=== PATIENT | female | born 1980 | race Caucasian/White ===

== ENCOUNTER → 2017-09-20 | Outpatient (CLI) | payer BC ==
[~2017-09-20] MED LIST: BENZ-36 PO; BIRTH CONTROL PO; CODE118S2 PO; CYCL10TA9 PO; DIPH25TA27 PO; ECHINACEA PO; EPIN0.3P3 IJ; HYDR-3584 PO; HYDR-757 PO; IPRA3AMP IH; LORA10TA7 PO; METF-478 PO; METF500T8 PO; MONT10TA24 PO; MULT1TAB69 PO; NAPR-915 PO; NORG1TAB30 PO; OXYC-272 PO; PRD10T PO; PRED10TA22 PO; SERT100T8 PO; SPIR50TA2 PO; SPRN25T PO; SRTR100T PO; VITA400C21 PO; VITA80006 PO
--- NOTE | 2017-09-20 15:02 | Diagnostic Imaging Report ---
PROCEDURE: US Gallbladder. TECHNIQUE: Multiple real-time grayscale images were obtained over the right upper quadrant in various projections. INDICATION: Abdominal pain. COMPARISON: None. FINDINGS: The liver appears unremarkable. The common bile duct is not well demonstrated however no gross biliary dilatation is seen. There is a 2.1 cm stone within the gallbladder. There is no gallbladder wall thickening or pericholecystic fluid. The pancreas appears unremarkable as visualized. The right kidney measures 11 cm in length. There is a 10 mm cyst in the mid right kidney. There is no obstructive change. There is no ascites. IMPRESSION: 1. Cholelithiasis without evidence of cholecystitis. 2. 1 cm right renal cyst. 3. No additional abnormality is seen. Dictated by: Dictated on workstation # [id number]
== END ==
LOC: RAD 14:04
PROVIDERS: ATTEND Internal Medicine
DX: K80.20 Calculus of gallbladder without cholecystitis without obstruction (principal); N28.1 Cyst of kidney, acquired
CPT/HCPCS: 76705

== ENCOUNTER 2017-09-26 05:39 | Outpatient (CLI) | payer BC ==
[~2017-09-26] VITALS: Ht 154.9 cm; Wt 65.8 kg
[2017-09-26] MEDS ORDERED: METF500T8 PO (10:40)
[2017-09-26] MEDS ORDERED: NAPR-1033 PO (10:40)
[2017-09-26] MEDS ORDERED: CEFP250T2 PO (10:40)
[2017-09-28] MEDS ORDERED: HYDR-34 PO (16:00)
== END 2017-09-26 10:49 ==
LOC: PREOP 05:39
PROVIDERS: ATTEND Surgery
DX: Z01.818 Encounter for other preprocedural examination (principal); K80.20 Calculus of gallbladder without cholecystitis without obstruction

== ENCOUNTER 2017-09-28 11:41 | Day surgery (SDC) | payer BC ==
[~2017-09-28] VITALS: Ht 154.9 cm; Wt 65.8 kg
[~2017-09-28 11:41] MED LIST changes: +CEFP250T2 PO; +NAPR-1033 PO
[2017-09-28 11:45] VITALS: BP 123/73
[2017-09-28] MEDS ORDERED: BUP/EPI 0.5% 1:200,000 (SENSORCAINE) 30 ML VIAL ONE (11:58)
[2017-09-28] MEDS ORDERED: ceFAZolin INJECTION 1,000 MG in NS (IVPB) 100 ML IV ONE (12:00)
[2017-09-28] MEDS ORDERED: FAMOTIDINE 20MG/2ML IV (PEPCID) IV ONE (12:15)
[2017-09-28] MEDS: LACTATED RINGERS 1,000 ML IV PRN ×2 (12:15→15:10)
--- NOTE | 2017-09-28 12:27 | Progress Note-Pre Operative ---
Pre-Operative Progress Note H&P Reviewed The H&P was reviewed, patient examined and no changes noted. Date Seen by Provider: Sep 28, 2017 Time Seen by Provider: 12:20 Date H&P Reviewed: Sep 28, 2017 Time H&P Reviewed: 12:25 Pre-Operative Diagnosis: Chronic calculous cholecystitis KVNG MORAN APRN Sep 28, 2017 12:27 pm
[2017-09-28] MEDS ORDERED: proPOfol 200 MG/20 ML (DIPRIVAN) VIAL IV ONE (13:23)
[2017-09-28] MEDS ORDERED: LIDOCAINE PF 2% 5 ML (XYLOCAINE) VIAL ONE (13:23)
[2017-09-28] MEDS ORDERED: ROCURONIUM 10 MG/ML 5 ML SYRINGE IV ONE (13:23)
[2017-09-28] MEDS ORDERED: MIDAZOLAM 2 MG/2 ML (VERSED) VIAL ONE (13:23)
[2017-09-28] MEDS ORDERED: ONDANSETRON 4 MG/2 ML (SDV) Z0FRAN ONE (13:23)
[2017-09-28] MEDS ORDERED: fentaNYL INJECTION 100 MCG/2 ML AMP ONE (13:23)
[2017-09-28] MEDS ORDERED: DEXAMETHASONE 10 MG/ML (DECADRON) 1 ML VIAL ONE (13:23)
[2017-09-28] MEDS ORDERED: SEVOFLURANE (ULTANE) 15 ML INHAL SOLN ONE ×5 (13:28→15:53)
[2017-09-28] MEDS ORDERED: ONDANSETRON 4 MG/2 ML (SDV) Z0FRAN IVP PRN ×2 (15:30→16:00)
[2017-09-28] MEDS ORDERED: SUGAMMADEX 100 MG/ML 5 ML (BRIDION) IV ONE (15:36)
--- NOTE | 2017-09-28 15:51 | Progress Note-Post Operative ---
Post-Operative Progess Note Surgeon (s)/Ladle Car Operator (s) Surgeon TRAVIS BUCHANAN MD Ladle Car Operator: thang montesinos DUB ROOM ENGINEER Pre-Operative Diagnosis Chronic calculous cholecystitis Post-Operative Diagnosis same Procedure & Operative Findings Date of Procedure 09/28/17 Procedure Performed/Findings laparoscopic cholecystectomy. Anesthesia Type GET Estimated Blood Loss Estimated blood loss (mL): minimal Specimens/Packing Specimens Removed gallbladder TRAVIS BUCHANAN MD Sep 28, 2017 3:51 pm
[2017-09-28] MEDS ORDERED: NEOSTIGMINE 1 MG/ML 5 ML SYRINGE ONE (15:53)
[2017-09-28] MEDS ORDERED: GLYCOPYRROLATE 0.2 MG/ML (ROBINUL) 2 ML VIAL ONE (15:53)
[2017-09-28] MEDS ORDERED: morphine INJ 10 MG/ML 1ML (SYR OR VIAL) IVP PRN (16:00)
[2017-09-28] MEDS ORDERED: HYDROcodone/APAP 5 MG/325 MG (LORTAB) TAB PO ONE (16:00)
[2017-09-28] MEDS ORDERED: ACETAMINOPHEN 325 MG TABLET/CAPLET (TYLENOL) PO PRN (16:00)
[2017-09-28] MEDS ORDERED: HYDR-34 PO (16:00)
--- NOTE | 2017-09-28 16:01 | Discharge Inst-Surgical ---
D/C Lap Instructions-CHANEL New, Converted, or Re-Newed RX: RX on Chart Follow Up Appt in 2 weeks Activity as tolerated No driving for 24 hours No driving while on pain medications Incentive Spirometry use every 2 hours while awake Regular Diet Symptoms to Report: Fever over 101 degree F, Nausea/Vomiting Infection Signs and Symptoms to report: Increased redness, Foul odor of wound, Increased drainage Bathing instructions: May shower Operative Area Clean/Dry; Keep incision clean/dry If any problems/questions: Contact your physician or go to Emergency Room TRAVIS BUCHANAN MD Sep 28, 2017 4:01 pm
[2017-09-28] MEDS: morphine INJ 10 MG/ML 1ML (SYR OR VIAL) IVP PRN ×2 (16:24→16:32)
[2017-09-28 17:05] VITALS: BP 110/69
[2017-09-28 17:35] VITALS: BP 106/64
[2017-09-28 18:05] VITALS: BP 104/75
--- NOTE | 2017-09-28 18:47 | Anesthesia-General Post-Op ---
General Patient Condition Mental Status/LOC: Same as Preop Cardiovascular: Satisfactory Nausea/Vomiting: Absent Respiratory: Satisfactory Pain: Controlled Complications: Absent Post Op Complications Complications None Follow Up Care/Instructions Patient Instructions None needed. Anesthesia/Patient Condition Patient Condition Patient is doing well, no complaints, stable vital signs, no apparent adverse anesthesia problems. No complications reported per nursing. ZURI HERNADEZ CRNA Sep 28, 2017 18:47
--- NOTE | 2017-09-28 20:36 | OPERATIVE REPORT ---
DATE OF SERVICE: 09/28/2017 ATTENDING PRIMARY CARE PHYSICIAN: Alli Ardon DO. PREOPERATIVE DIAGNOSIS: Symptomatic chronic calculous cholecystitis. POSTOPERATIVE DIAGNOSIS: Symptomatic chronic calculous cholecystitis. PROCEDURE: Laparoscopic cholecystectomy. SURGEON: Travis Buchanan MD. ANESTHESIA: General endotracheal. ESTIMATED BLOOD LOSS: Minimal. FINDINGS: Chronic gallbladder wall inflammation as well as large solitary stone. DISPOSITION: The patient tolerated the procedure well. INDICATIONS FOR PROCEDURE: The patient is a 37-year-old female who has had several episodes of pain in the right upper abdominal quadrant with radiation towards the back. However, several weeks ago, she had had a severe event that lasted much longer and was associated with fever. She was seen by her physician and the ultrasound was performed, which did show gallstones. DESCRIPTION OF PROCEDURE: The patient was brought to the operating room, laid supine on the table. After adequate IV pain and sedative medications and general endotracheal intubation, the abdomen was prepped and draped in standard surgical fashion. A 0.5% Marcaine with epinephrine was then used to anesthetize the overlying skin in the left upper abdominal quadrant and a transverse skin incision made using 15 blade. An 0 silk suture was applied to the medial aspect of the incision for retraction and a Veress needle inserted with a low opening pressure of 0 mmHg and the abdomen was insufflated to 15 mmHg pressure. The Veress needle removed and a 5 mm Xcel trocar placed followed by a 5 mm 45 degree angle laparoscope visualizing the peritoneal cavity. A four-quadrant abdominal exploration was performed. There was a distended gallbladder with mild gallbladder wall inflammation. What was visualized of the liver, small bowel, omentum and stomach appeared normal. Under direct visualization, we then proceed to place a supraumbilical 10 mm port after the skin and peritoneal lining were anesthetized using 0.5% Marcaine with epinephrine and a transverse skin incision was made using a 15 blade. In a similar manner, a right upper abdominal quadrant 5 mm port was placed. The patient was then placed in reverse Trendelenburg position as well as plane right side up, left side down. The fundus of the gallbladder was then retracted anteriorly and superiorly. The hepatoduodenal ligament was then opened using electrocautery on the hook instrument as well as blunt dissection. The entire critical view of safety was identified including the cystic duct and artery as the only two structures going into the gallbladder, triangle of Calot as well as the cystic plate behind the proximal gallbladder. A timeout was then taken and the cystic duct and artery were then clipped proximally and distally and cut with EndoShears. The gallbladder was then dissected off the liver bed using electrocautery and hook instrument with visualization of good hemostasis as well as no leaking ducts of Luschka. The gallbladder was removed through the 10 mm port site using an EndoCatch bag. The 10 mm port site fascia and peritoneum were then closed under direct visualization using a Earl-Aurora device and 0 Vicryl suture. The abdomen was desufflated. The remaining ports removed. All skin incisions were closed using 4-0 Monocryl running subcuticular sutures. Wounds were then cleaned and covered with Dermabond. The patient tolerated the procedure well. We will start IV and oral pain medications as well as a clear liquid diet. Once she is tolerating clears, has good pain control with oral pain medications, ambulating well, we will discharge her home. Job ID: [id number] DocumentID: [id number] Dictated Date: 09/28/2017 16:05:29 Petroleum Engineering Professor Date: 09/28/2017 20:36:24 Dictated By: TRAVIS BUCHANAN MD
== END 2017-09-28 18:45 | disposition home or self-care (01) ==
LOC: SDC 11:41
PROVIDERS: ATTEND Surgery
DX: K80.10 Calculus of gallbladder with chronic cholecystitis without obstruction (principal); E28.2 Polycystic ovarian syndrome; F32.9 Major depressive disorder, single episode, unspecified; R51 Headache; Z79.84 Long term (current) use of oral hypoglycemic drugs; Z79.899 Other long term (current) drug therapy; Z87.891 Personal history of nicotine dependence
CPT/HCPCS: 84703; 87081

== ENCOUNTER 2018-12-25 15:05 | Emergency (ER) | payer BC, OTHER ==
[~2018-12-25] VITALS: Ht 154.9 cm; Wt 62.6 kg
[~2018-12-25 15:05] MED LIST changes: -CODE118S2 PO; +CODE118S4 PO; +HYDR-34 PO; +HYDR-4226 PO; -HYDR-757 PO; -IPRA3AMP IH; +IPRA3AMP31 IH; -SPIR50TA2 PO; +SPIR50TA4 PO
--- OUTSIDE RECORDS SUMMARY | 2018-12-25 15:10 | XMS REPORT | Clinical Summary ---
Author Author [facility] Organization [facility] Address Unknown Phone Unavailable Care Team Providers Care Frame And Scrap Crusher Name Role Phone Alli Ardon MD PCP Source Comments Some departments are not documenting in the electronic medical record. If you d o not see the information that you expected, contact Release of Information in [facility] [place] Information Management department at [phone] for further assistan ce in locating additional records.[facility] Allergies Comments Active Allergy Reactions Severity Noted Date Possible elevated LFTs Azithromycin ANAPHYLAXIS, High 06/08/2016 URTICARIA, ANGIOEDEMA Medications End Date Status Medication Sig Dispensed Refills Start Date Active metFORMIN-XR(+) Take 500 mg 0 (GLUCOPHAGE XR) 500 mg by mouth extended release tablet daily with dinner. Active spironolactone Take 50 mg by 0 (ALDACTONE) 50 mg tablet mouth daily. Take with food. Active norgestimate/ethinyl Take 1 Tab by 0 estradiol(+) (MONONESSA mouth daily. (28)) tablet Active sertraline (ZOLOFT) 100 Take 100 mg 0 mg tablet by mouth daily. Active multivit with min-folic Chew 2 Gummy 0 acid (WOMEN'S by mouth MULTIVITAMIN GUMMIES) 200 daily. mcg chewable Active diphenhydrAMINE Take 1 Cap by 30 Cap 0 (BENADRYL) 25 mg capsule mouth every 6 6 hours as needed (pruritis, hives). Active hydrOXYzine (ATARAX) 25 Take 1-2 Tabs 60 Tab 0 mg tablet by mouth at 6 bedtime daily. Active cetirizine (ZYRTEC) 10 mg Take 1 Tab by 30 Tab 0 tablet mouth daily. 6 Active prednisone (DELTASONE) 20 Take 40mg (2 10 Tab 0 mg tablet tabs) by 6 mouth daily for 3 days, then take 20mg (1 tab) for 3 days, then take 10mg (1 tab) daily for 1 day. Active famotidine (PEPCID) 20 mg Take 1 Tab by 60 Tab 0 tablet mouth twice 6 daily. Active EPINEPHrine(+) (EPIPEN Inject 0.3 mg 2 Each 11 2-PHILIPP) 1 mg/mL injection (1 Pen) into 6 pen (2-Pack) thigh if needed for anaphylactic reaction. May repeat in 5-15 minutes if needed. Active Problems Problem Noted Date Acute urticaria 07/21/2016 Overview: With and without angioedema (involved lip, tongue, throat) Thought to be sec to infection and or azithromycin use Resolved Azithromycin listed as allergy, will avoid Clarithromycin as well Has Epi-pen available, if no further episodes in a year, can discontinue carrying it around If recurrent episodes, will start Zyrtec 10mg daily, increase to BID dosing if needed and call us for further recs Weight gain 07/21/2016 Overview: Likely sec to recent steroid use Normal thyroid work up per patient Could follow up with PCP if remains a concern Recurrent infections 07/21/2016 Overview: Reports 5 episodes of pnuemonia in last 5 yrs, all treated as outpatient with antibiotics First episode confirmed by a CXR Recurrent sinusitis (2 per year), last episode 5 years ago, all treated with antibiotics, never had CT sinus Hx not concerning for any other infections CBC checked 06/17 wnl, CMP unremarkable except for transaminitis Will order IgG, M and A levels, total complement, pneumococcal IgG levels (no hx of pneumonia shot), T & B cell panel, HiB and Tetanus antibody levels to evaluate for PID Shortness of breath 07/21/2016 Overview: No formal diagnosis of asthma Always been associated with development of pnuemonia and would resolve with breathing treatments via nebulizer No association of shortness of breath with URI, cold air exposure or exertion Spirometry not reproducible with normal ratio and % predicted FEV1 Not sure if we could call this asthma Would recommend for PCP to start Symbicort 160/4.5 mcg 2 puffs BID at the first symptoms of shortness of breath (use it for 2 weeks) and to obtain spirometry (pt lives in [place], [place]) to further evaluate Cholelithiasis 06/10/2016 Transaminitis 06/10/2016 Overview: Likely sec to Azithromycin use in Jun, 16 as work up for viral hepatitis and auto-immune hepatitis unremarkable Reports recent labs as outpatient with borderline abnormal levels, will repeat CMP today Anaphylaxis 06/07/2016 PCOS (polycystic ovarian syndrome) 06/07/2016 Anxiety 06/07/2016 Family History Medical History Relation Name Comments Stroke Father Relation Name Status Comments Father Social History Date Tobacco Use Types Packs/Day Years Used Never Smoker Drinks/Week oz/Week Comments Alcohol Use 0 Standard drinks or equivalent 0.0 No Sex Assigned at Date Recorded Not on file Industry Job Start Date Occupation Not on file Not on file Not on file Travel End Travel History Travel Start No recent travel history available. Last Filed Vital Signs Reading Time Taken Comments Vital Sign 105/73 07/21/2016 10:49 AM CHEMISTRY INTERN Blood Pressure 93 07/21/2016 10:49 AM CHEMISTRY INTERN Pulse 36.9 C (98.4 F) 07/21/2016 10:49 AM CHEMISTRY INTERN Temperature 16 07/21/2016 10:49 AM CHEMISTRY INTERN Respiratory Rate 98% 07/21/2016 10:49 AM CHEMISTRY INTERN RA Oxygen Saturation - - Inhaled Oxygen Concentration 66.7 kg (147 lb) 07/21/2016 10:49 AM CHEMISTRY INTERN Weight 154.9 cm (5' 1") 07/21/2016 10:49 AM CHEMISTRY INTERN Height 27.78 07/21/2016 10:49 AM CHEMISTRY INTERN Body Mass Index Plan of Treatment Health Maintenance Due Date Last Done Comments PHYSICAL (COMPREHENSIVE) 1985 EXAM HIV SCREENING 1993 DTAP/TDAP VACCINES ( - 1996 Tdap) CERVICAL CANCER SCREENING 2008 BREAST CANCER SCREENING 2018 INFLUENZA VACCINE 04/02/2019 Results Not on filefrom Last 3 Months Insurance Type Payer Benefit Subscriber ID Effective Phone Address Plan / Dates Group PPO BCBS DICK [employer]BS [employer] xxxxxxxxxxxx 2016- OUT OF Present STATE Advance Directives Patient Special Procedure Technologist Explanation Type Date Recorded Advance 06/08/2016 1:24 PM Directive/DPOA Date Inactivated Comments Code Status Date Activated 06/10/2016 3:20 PM Full Code 06/07/2016 7:37 PM Provider has discussed Code Status No, more discussion w/Patient or Family? needed
--- OUTSIDE RECORDS SUMMARY | 2018-12-25 15:10 | XMS REPORT ---
Author Author Migration, Doctor Organization [facility] Address Unknown Phone Unavailable Care Team Providers Care Conveyor Console Operator Name Role Phone Migration, Doctor Unavailable Unavailable PROBLEMS Unknown Problems ALLERGIES No Information ENCOUNTERS Encounter Location Date Diagnosis [facility] [id number] [place] [phone] 25 Sep, 2015 Sore throat J02.9 ; Body aches R52 ; Submandibular lymphadenitis I88.9 and Parotitis, acute K11.21 [facility] [id number] [place] [id number] 14 Oct, 2014 [facility] [id number] [place] [phone] Oct, [facility] [id number] [place] [id number] 27 Mar, 2012 [facility] [id number] [place] [phone] 04 Mar, 2012 [facility] [id number] [place] [phone] Dec, [facility] [id number] [place] [phone] 14 Aug, 2010 [facility] [id number] [place] [phone] 14 Mar, 2010 [facility] [id number] [place] [phone] May, [facility] [id number] [place] [phone] May, [facility] [id number] [place] [phone] May, [facility] [id number] [address] Apr, [facility] [id number] [address] Aug, [facility] [id number] [address] Jun, [facility] [id number] [address] Jun, [facility] [id number] [address] Apr, [facility] [id number] [address] Apr, IMMUNIZATIONS No Known Immunizations SOCIAL HISTORY Never Assessed REASON FOR V[place] [place] VITAL SIGNS MEDICATIONS No Known Medications RESULTS No Results PROCEDURES No Known procedures INSTRUCTIONS MEDICATIONS ADMINISTERED No Known Medications MEDICAL (GENERAL) HISTORY Type Description Date Medical History PCOS (Polycystic Ovary Syndrome) Medical History endometriosis Medical History fibroids Surgical History endometrial ablation 2014
--- OUTSIDE RECORDS SUMMARY | 2018-12-25 15:10 | XMS REPORT ---
Author Author Migration, Doctor Organization [facility] Address Unknown Phone Unavailable Care Team Providers Care Pediatric Physiatrist Name Role Phone Migration, Doctor Unavailable Unavailable PROBLEMS Unknown Problems ALLERGIES No Information ENCOUNTERS Encounter Location Date Diagnosis [facility] [id number] [place] [id number] 25 Sep, 2015 Sore throat J02.9 ; Body aches R52 ; Submandibular lymphadenitis I88.9 and Parotitis, acute K11.21 [facility] [id number] [place] [phone] 14 Oct, 2014 [facility] [id number] [place] [phone] Oct, [facility] [id number] [place] [phone] 27 Mar, 2012 [facility] [id number] [place] [phone] 04 Mar, 2012 [facility] [id number] [place] [phone] Dec, [facility] [id number] [place] [phone] 14 Aug, 2010 [facility] [id number] [place] [phone] 14 Mar, 2010 [facility] [id number] [place] [phone] May, [facility] [id number] [place] [phone] May, [facility] [id number] [place] [phone] May, [facility] [id number] [address] Apr, [facility] [id number] [address] Aug, [facility] [id number] [address] Jun, [facility] [id number] [address] Jun, [facility] [id number] [address] Apr, [facility] [id number] [address] Apr, IMMUNIZATIONS No Known Immunizations SOCIAL HISTORY Never Assessed REASON FOR VISIT [place] [place]AN OF CARE VITAL SIGNS MEDICATIONS No Known Medications RESULTS No Results PROCEDURES No Known procedures INSTRUCTIONS MEDICATIONS ADMINISTERED No Known Medications MEDICAL (GENERAL) HISTORY Type Description Date Medical History PCOS (Polycystic Ovary Syndrome) Medical History endometriosis Medical History fibroids Surgical History endometrial ablation 2014
--- OUTSIDE RECORDS SUMMARY | 2018-12-25 15:10 | XMS REPORT ---
Author Author Migration, Doctor Organization [facility] Address Unknown Phone Unavailable Care Team Providers Care Nutrition Manager Name Role Phone Migration, Doctor Unavailable Unavailable PROBLEMS Unknown Problems ALLERGIES No Information ENCOUNTERS Encounter Location Date Diagnosis [facility] [id number] [place] [id number] 25 Sep, 2015 Sore throat J02.9 ; Body aches R52 ; Submandibular lymphadenitis I88.9 and Parotitis, acute K11.21 [facility] [id number] [place] [phone] 14 Oct, 2014 [facility] [id number] [place] [phone] Oct, [facility] [id number] [place] [phone] 27 Mar, 2012 [facility] [id number] [place] [phone] 04 Mar, 2012 [facility] [id number] [place] [phone] Dec, [facility] [id number] [place] [phone] 14 Aug, 2010 [facility] [id number] [place] [phone] 14 Mar, 2010 [facility] [id number] [place] [phone] May, [facility] [id number] [place] [phone] May, [facility] [id number] [place] [phone] May, [facility] [id number] [address] Apr, [facility] [id number] [address] Aug, [facility] [id number] [place] [address] Jun, [facility] [id number] [place] [address] Jun, [facility] [id number], [place] [address] Apr, [facility] [id number] [place] [address] Apr, IMMUNIZATIONS No Known Immunizations SOCIAL HISTORY Never Assessed REASON FOR VISIT [place] [place] PLAN OF CARE VITAL SIGNS MEDICATIONS Medication Instructions Dosage Frequency Start Date End Date Duration Status sertraline 100 mg 1 tablet by Oral route 1 time per dayneeds f/u appt for further refills---please advise pt Mar, Active RESULTS No Results PROCEDURES No Known procedures INSTRUCTIONS MEDICATIONS ADMINISTERED No Known Medications MEDICAL (GENERAL) HISTORY Type Description Date Medical History PCOS (Polycystic Ovary Syndrome) Medical History endometriosis Medical History fibroids Surgical History endometrial ablation 2014
--- OUTSIDE RECORDS SUMMARY | 2018-12-25 15:11 | XMS REPORT | Continuity of Care Document ---
Author Organization Unknown Address Unknown Allergies Active Description Code Type Severity Reaction Onset Reported/Identified Relationship to Patient Clinical Status Yes NKANo Known Allergies NKA Miscellaneous Allergy Mild N/A 05/03/2009 Yes azithromycin [id number] Drug Allergy Severe ANAPHYLAXIS 06/03/2016 Medications There is no data. Problems Date Dx Coded Attending Type Code Diagnosis Diagnosed By 10/09/2014 LITO MAURER, MECCA Canales Ot 285.9 10/09/2014 LITO MAURER, MECCA Canales Ot 625.8 10/09/2014 LITO MAURER, MECCA Canales Ot 626.8 10/09/2014 LITO MAURER, MECCA Canales Ot V72.63 10/09/2014 MECCA MORSE MD Ot V74.8 10/10/2014 MECCA MORSE MD Ot 617.0 UTERINE ENDOMETRIOSIS 10/10/2014 MECCA MORSE MD Ot 617.1 OVARIAN ENDOMETRIOSIS 10/10/2014 MECAC MORSE MD Ot 617.3 PELV PERIT ENDOMETRIOSIS 10/10/2014 MECCA MORSE MD Ot 626.8 MENSTRUAL DISORDER NEC 10/30/2014 LITO MAURER, MECCA Canales Ot 285.9 10/30/2014 LITO MAURER, MECCA Canales Ot 625.8 10/30/2014 MECCA MORSE MD Ot 626.8 10/30/2014 MECCA MORSE MD, Ot V72.63 10/30/2014 MECCA MORSE MD Ot V74.8 12/07/2014 MECCA MORSE MD Ot 611.72 12/07/2014 MECCA MORSE MD Ot 285.9 12/07/2014 MECCA MORSE MD Ot 625.8 12/07/2014 MECCA MORSE MD Ot 626.8 12/07/2014 MECCA MORSE MD, Ot V72.63 12/07/2014 MECCA MORSE MD Ot V74.8 12/15/2014 MECCA MORSE MD Ot 611.72 12/15/2014 MECCA MORSE MD Ot 285.9 12/15/2014 MECCA MORSE MD Ot 625.8 12/15/2014 MECCA MORSE MD Ot 626.8 12/15/2014 MECCA MORSE MD, Ot V72.63 12/15/2014 MECCA MORSE MD, Ot V74.8 03/24/2015 ALENA CASTLE SECURITY INFRASTRUCTURE ENGINEER Ot 724.1 PAIN IN THORACIC SPINE 03/24/2015 ALENA CASTLE SECURITY INFRASTRUCTURE ENGINEER Ot 724.8 OTHER BACK SYMPTOMS 06/01/2016 MECCA MORSE MD Ot 611.72 LUMP OR MASS IN BREAST 06/01/2016 MECCA MORSE MD Ot 285.9 ANEMIA NOS 06/01/2016 MECCA MORSE MD Ot 625.8 FEM GENITAL SYMPTOMS NEC 06/01/2016 MECCA MORSE MD Ot 626.8 MENSTRUAL DISORDER NEC 06/01/2016 MECCA MORSE MD Ot V72.63 PRE-PROCEDURAL LABORATORY EXAMINATION 06/01/2016 MECCA MORSE MD, Ot V74.8 SCREEN-BACTERIAL DIS NEC 06/02/2016 NATALYA SANCHEZ, VANIA K Ot L50.0 ALLERGIC URTICARIA 06/02/2016 NATALYA SANCHEZ, VANIA K Ot L50.0 ALLERGIC URTICARIA 06/02/2016 NATALYA SANCHEZ VANIA K Ot L50.0 ALLERGIC URTICARIA 06/02/2016 MECCA MORSE MD Ot 611.72 LUMP OR MASS IN BREAST 06/02/2016 MECCA MORSE MD Ot 285.9 ANEMIA NOS 06/02/2016 MECCA MORSE MD Ot 625.8 FEM GENITAL SYMPTOMS NEC 06/02/2016 MECCA MORSE MD, Ot 626.8 MENSTRUAL DISORDER NEC 06/02/2016 MECCA MORSE MD, Ot V72.63 PRE-PROCEDURAL LABORATORY EXAMINATION 06/02/2016 MECCA MORSE MD, Ot V74.8 SCREEN-BACTERIAL DIS NEC 06/03/2016 MECCA MORSE MD, Ot 611.72 LUMP OR MASS IN BREAST 06/03/2016 MECCA MORSE MD Ot 285.9 ANEMIA NOS 06/03/2016 MECCA MORSE MD, Ot 625.8 FEM GENITAL SYMPTOMS NEC 06/03/2016 MECCA MORSE MD, Ot 626.8 MENSTRUAL DISORDER NEC 06/03/2016 MECCA MORSE MD, Ot V72.63 PRE-PROCEDURAL LABORATORY EXAMINATION 06/03/2016 MECCA MORSE MD, Ot V74.8 SCREEN-BACTERIAL DIS NEC 06/03/2016 HERSON BLACK DO Ot J18.9 PNEUMONIA, UNSPECIFIED ORGANISM 06/03/2016 HERSON BLACK DO, Ot J18.9 PNEUMONIA, UNSPECIFIED ORGANISM 06/06/2016 ELEUTERIO NUENZ DO Ot L50.0 ALLERGIC URTICARIA 06/06/2016 ELEUTERIO NUNEZ DO Ot T36.3X5A ADVERSE EFFECT OF MACROLIDES, INITIAL EN 06/06/2016 LEEUTERIO NUNEZ DO Ot T88.6XXA ANAPHYL REACTION DUE TO ADVRS EFF DRUG/M 06/07/2016 MECCA MORSE MD, Ot 611.72 LUMP OR MASS IN BREAST 06/07/2016 MECCA MORSE MD, Ot 285.9 ANEMIA NOS 06/07/2016 MECCA MORSE MD, Ot 625.8 FEM GENITAL SYMPTOMS NEC 06/07/2016 MECCA MORSE MD, Ot 626.8 MENSTRUAL DISORDER NEC 06/07/2016 MECCA MORSE MD, Ot V72.63 PRE-PROCEDURAL LABORATORY EXAMINATION 06/07/2016 MECCA MORSE MD, Ot V74.8 SCREEN-BACTERIAL DIS NEC 06/07/2016 HERSON BLACK DO Ot J18.9 PNEUMONIA, UNSPECIFIED ORGANISM 06/07/2016 MECCA MORSE MD, Ot 611.72 LUMP OR MASS IN BREAST 06/07/2016 MECCA MORSE MD Ot 285.9 ANEMIA NOS 06/07/2016 MECCA MORSE MD, Ot 625.8 FEM GENITAL SYMPTOMS NEC 06/07/2016 MECCA MORSE MD, Ot 626.8 MENSTRUAL DISORDER NEC 06/07/2016 MECCA MORSE MD, Ot V72.63 PRE-PROCEDURAL LABORATORY EXAMINATION 06/07/2016 MECCA MORSE MD, Ot V74.8 SCREEN-BACTERIAL DIS NEC 06/07/2016 HERSON BLACK DO, Ot J18.9 PNEUMONIA, UNSPECIFIED ORGANISM 06/07/2016 WILLIAM RAZA MD, Ot E11.9 TYPE 2 DIABETES MELLITUS WITHOUT COMPLIC 06/07/2016 WILLIAM RAZA MD, Ot T78.2XXA ANAPHYLACTIC SHOCK, UNSPECIFIED, INITIAL 06/07/2016 WILLIAM RAZA MD, Ot 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 06/08/2016 VANIA HOANG DO Ot L50.0 ALLERGIC URTICARIA 06/08/2016 WILLIAM RAZA MD, Ot E11.9 TYPE 2 DIABETES MELLITUS WITHOUT COMPLIC 06/08/2016 WILLIAM RAZA MD, Ot T78.2XXA ANAPHYLACTIC SHOCK, UNSPECIFIED, INITIAL 06/08/2016 WILLIAM RAZA MD, Ot Z79.84 [facility] (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 OF ORAL HYPOGLYC 06/10/2016 WILLIAM RAZA MD, Ot E11.9 TYPE 2 DIABETES MELLITUS WITHOUT COMPLIC 06/10/2016 WILLIAM RAZA MD, Ot T78.2XXA ANAPHYLACTIC SHOCK, UNSPECIFIED, INITIAL 06/10/2016 WILLIAM RAZA MD, Ot 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 06/23/2016 HERSON BLACK DO, Ot J18.9 PNEUMONIA, UNSPECIFIED ORGANISM 07/01/2016 MECCA MORSE MD, Ot 611.72 LUMP OR MASS IN BREAST 07/01/2016 MECCA MORSE MD Ot 285.9 ANEMIA NOS 07/01/2016 MECCA MORSE MD Ot 625.8 FEM GENITAL SYMPTOMS NEC 07/01/2016 MECCA MORSE MD Ot 626.8 MENSTRUAL DISORDER NEC 07/01/2016 MECCA MORSE MD, Ot V72.63 PRE-PROCEDURAL LABORATORY EXAMINATION 07/01/2016 MECCA MORSE MD, Ot V74.8 SCREEN-BACTERIAL DIS NEC 07/01/2016 HERSON BLACK DO Ot J18.9 PNEUMONIA, UNSPECIFIED ORGANISM 07/01/2016 BLACKHERSON BUTTS DO Ot J18.9 PNEUMONIA, UNSPECIFIED ORGANISM 07/07/2016 BLACK DO, HERSON Gonzalez Ot J18.9 PNEUMONIA, UNSPECIFIED ORGANISM 11/24/2016 BLACKHERSON BUTTS DO Ot J18.9 PNEUMONIA, UNSPECIFIED ORGANISM 09/21/2017 HERSON BLACK DO Ot K80.20 CALCULUS OF GALLBLADDER W/O CHOLECYSTITI 09/21/2017 HERSON BLACK DO Ot N28.1 CYST OF KIDNEY, ACQUIRED 09/28/2017 TRAVIS BUCHANAN MD, Ot E28.2 POLYCYSTIC OVARIAN SYNDROME 09/28/2017 TRAVIS BUCHANAN MD, Ot F32.9 MAJOR DEPRESSIVE DISORDER, SINGLE EPISOD 09/28/2017 TRAVIS BUCHANAN MD Ot K80.10 CALCULUS OF GALLBLADDER W CHRONIC CHOLEC 09/28/2017 TRAVIS BUCHANAN MD Ot R51 HEADACHE 09/28/2017 TRAVIS BUCHANAN MD Ot 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 09/28/2017 TRAVIS BUCHANAN MD Ot Z79.899 OTHER [facility] (CURRENT) DRUG THERAPY 09/28/2017 TRAVIS BUCHANAN MD, Ot Z87.891 PERSONAL HISTORY OF NICOTINE DEPENDENCE 09/29/2017 TRAVIS BUCHANAN MD, Ot E28.2 POLYCYSTIC OVARIAN SYNDROME 09/29/2017 TRAVIS BUCHANAN MD, Ot F32.9 MAJOR DEPRESSIVE DISORDER, SINGLE EPISOD 09/29/2017 TRAVIS BUCHANAN MD Ot K80.10 CALCULUS OF GALLBLADDER W CHRONIC CHOLEC 09/29/2017 TRAVIS BUCHANAN MD Ot R51 HEADACHE 09/29/2017 TRAVIS BUCHANAN MD, Ot Z79.84 [facility] (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 OF ORAL HYPOGLYC 09/29/2017 TRAVIS BUCHANAN MD Ot Z79.899 OTHER [facility] (CURRENT) DRUG THERAPY 09/29/2017 CHANEL MAURER, TRAVIS Ot Z87.891 PERSONAL HISTORY OF NICOTINE DEPENDENCE 10/05/2017 HERSON BLACK DO Ot K80.20 CALCULUS OF GALLBLADDER W/O CHOLECYSTITI 10/05/2017 HERSON BLACK DO Ot N28.1 CYST OF KIDNEY, ACQUIRED Procedures There is no data. Results Test Result Range Influenza virus A and B antigen detection - 06/02/16 12:35 FLU RESULT NEGATIVE FOR INFLUENZA A AND B ANTIGENS BY [facility] Complete blood count (CBC) with automated white blood cell (WBC) differential - 06/03/16 04:34 Blood leukocytes automated count (number/volume) 8.4 10*3/uL 4.3-11.0 Blood erythrocytes automated count (number/volume) 4.50 10*6/uL 4.35-5.85 Venous blood hemoglobin measurement (mass/volume) 13.3 g/dL 11.5-16.0 Blood hematocrit (volume fraction) 38 % 35-52 Automated erythrocyte mean corpuscular volume 84 [foz_us] 80-99 Automated erythrocyte mean corpuscular hemoglobin (mass per erythrocyte) 30 pg 25-34 Automated erythrocyte mean corpuscular hemoglobin concentration measurement (mass/volume) 35 g/dL 32-36 Automated erythrocyte distribution width ratio 12.9 % 10.0- 14.5 Automated blood platelet count (count/volume) 279 10*3/uL 130-400 Automated blood platelet mean volume measurement 9.8 [foz_us] 7.4-10.4 Automated blood neutrophils/100 leukocytes 53 % 42-75 Automated blood lymphocytes/100 leukocytes 39 % 12-44 Blood monocytes/100 leukocytes 7 % 0-12 Automated blood eosinophils/100 leukocytes 1 % 0-10 Automated blood basophils/100 leukocytes 0 % 0-10 Blood neutrophils automated count (number/volume) 4.4 10*3 1.8-7.8 Blood lymphocytes automated count (number/volume) 3.3 10*3 1.0-4.0 Blood monocytes automated count (number/volume) 0.6 10*3 0.0- 1.0 Automated eosinophil count 0.1 10*3/uL 0.0-0.3 Automated blood basophil count (count/volume) 0.0 10*3/uL 0.0-0.1 Comprehensive metabolic panel - 06/03/16 04:34 Serum or plasma sodium measurement (moles/volume) 138 mmol/L 135-145 Serum or plasma potassium measurement (moles/volume) 3.1 mmol/L 3.6-5.0 Serum or plasma chloride measurement (moles/volume) 107 mmol/L 98-107 Carbon dioxide 21 mmol/L 21-32 Serum or plasma anion gap determination (moles/volume) 10 mmol/L 5-14 Serum or plasma urea nitrogen measurement (mass/volume) 14 mg/dL 7-18 Serum or plasma creatinine measurement (mass/volume) 0.79 mg/dL 0.60-1.30 Serum or plasma urea nitrogen/creatinine mass ratio 18 NRG Serum or plasma creatinine measurement with calculation of estimated glomerular filtration rate > NRG Serum or plasma glucose measurement (mass/volume) 122 mg/dL 70-105 Serum or plasma calcium measurement (mass/volume) 9.2 mg/dL 8.5-10.1 Serum or plasma total bilirubin measurement (mass/volume) 0.6 mg/dL 0.1-1.0 Serum or plasma alkaline phosphatase measurement (enzymatic activity/volume) 62 U/L 40-136 Serum or plasma aspartate aminotransferase measurement (enzymatic activity/volume) 40 U/L 5-34 Serum or plasma alanine aminotransferase measurement (enzymatic activity/volume) 60 U/L 0-55 Serum or plasma protein measurement (mass/volume) 6.9 g/dL 6.4-8.2 Serum or plasma albumin measurement (mass/volume) 4.2 g/dL 3.2-4.5 Complete blood count (CBC) with automated white blood cell (WBC) differential - 06/04/16 05:47 Blood leukocytes automated count (number/volume) 9.4 10*3/uL 4.3-11.0 Blood erythrocytes automated count (number/volume) 3.72 10*6/uL 4.35-5.85 Venous blood hemoglobin measurement (mass/volume) 11.0 g/dL 11.5-16.0 Blood hematocrit (volume fraction) 32 % 35-52 Automated erythrocyte mean corpuscular volume 85 [foz_us] 80-99 Automated erythrocyte mean corpuscular hemoglobin (mass per erythrocyte) 30 pg 25-34 Automated erythrocyte mean corpuscular hemoglobin concentration measurement (mass/volume) 35 g/dL 32-36 Automated erythrocyte distribution width ratio 13.0 % 10.0- 14.5 Automated blood platelet count (count/volume) 278 10*3/uL 130-400 Automated blood platelet mean volume measurement 9.6 [foz_us] 7.4-10.4 Automated blood neutrophils/100 leukocytes 86 % 42-75 Automated blood lymphocytes/100 leukocytes 11 % 12-44 Blood monocytes/100 leukocytes 3 % 0-12 Automated blood eosinophils/100 leukocytes 0 % 0-10 Automated blood basophils/100 leukocytes 0 % 0-10 Blood neutrophils automated count (number/volume) 8.1 10*3 1.8-7.8 Blood lymphocytes automated count (number/volume) 1.0 10*3 1.0-4.0 Blood monocytes automated count (number/volume) 0.3 10*3 0.0- 1.0 Automated eosinophil count 0.0 10*3/uL 0.0-0.3 Automated blood basophil count (count/volume) 0.0 10*3/uL 0.0-0.1 Whole blood basic metabolic panel - 06/04/16 05:47 Serum or plasma sodium measurement (moles/volume) 141 mmol/L 135-145 Serum or plasma potassium measurement (moles/volume) 3.6 mmol/L 3.6-5.0 Serum or plasma chloride measurement (moles/volume) 115 mmol/L 98-107 Carbon dioxide 19 mmol/L 21-32 Serum or plasma anion gap determination (moles/volume) 7 mmol/L 5-14 Serum or plasma urea nitrogen measurement (mass/volume) 8 mg/dL 7-18 Serum or plasma creatinine measurement (mass/volume) 0.64 mg/dL 0.60-1.30 Serum or plasma urea nitrogen/creatinine mass ratio 13 NRG Serum or plasma creatinine measurement with calculation of estimated glomerular filtration rate > NRG Serum or plasma glucose measurement (mass/volume) 127 mg/dL 70-105 Serum or plasma calcium measurement (mass/volume) 8.5 mg/dL 8.5-10.1 Serum or plasma phosphate measurement (mass/volume) - 06/04/16 05:47 Serum or plasma phosphate measurement (mass/volume) 2.6 mg/dL 2.3-4.7 Magnesium - 06/04/16 05:47 Magnesium 2.1 mg/dL 1.8-2.4 Complete blood count (CBC) with automated white blood cell (WBC) differential - 06/05/16 04:15 Blood leukocytes automated count (number/volume) 9.8 10*3/uL 4.3-11.0 Blood erythrocytes automated count (number/volume) 3.64 10*6/uL 4.35-5.85 Venous blood hemoglobin measurement (mass/volume) 10.7 g/dL 11.5-16.0 Blood hematocrit (volume fraction) 32 % 35-52 Automated erythrocyte mean corpuscular volume 87 [foz_us] 80-99 Automated erythrocyte mean corpuscular hemoglobin (mass per erythrocyte) 29 pg 25-34 Automated erythrocyte mean corpuscular hemoglobin concentration measurement (mass/volume) 34 g/dL 32-36 Automated erythrocyte distribution width ratio 13.6 % 10.0- 14.5 Automated blood platelet count (count/volume) 253 10*3/uL 130-400 Automated blood platelet mean volume measurement 9.8 [foz_us] 7.4-10.4 Automated blood neutrophils/100 leukocytes 83 % 42-75 Automated blood lymphocytes/100 leukocytes 13 % 12-44 Blood monocytes/100 leukocytes 4 % 0-12 Automated blood eosinophils/100 leukocytes 0 % 0-10 Automated blood basophils/100 leukocytes 0 % 0-10 Blood neutrophils automated count (number/volume) 8.2 10*3 1.8-7.8 Blood lymphocytes automated count (number/volume) 1.3 10*3 1.0-4.0 Blood monocytes automated count (number/volume) 0.4 10*3 0.0- 1.0 Automated eosinophil count 0.0 10*3/uL 0.0-0.3 Automated blood basophil count (count/volume) 0.0 10*3/uL 0.0-0.1 Whole blood basic metabolic panel - 06/05/16 04:15 Serum or plasma sodium measurement (moles/volume) 139 mmol/L 135-145 Serum or plasma potassium measurement (moles/volume) 4.0 mmol/L 3.6-5.0 Serum or plasma chloride measurement (moles/volume) 110 mmol/L 98-107 Carbon dioxide 22 mmol/L 21-32 Serum or plasma anion gap determination (moles/volume) 7 mmol/L 5-14 Serum or plasma urea nitrogen measurement (mass/volume) 12 mg/dL 7-18 Serum or plasma creatinine measurement (mass/volume) 0.70 mg/dL 0.60-1.30 Serum or plasma urea nitrogen/creatinine mass ratio 17 NRG Serum or plasma creatinine measurement with calculation of estimated glomerular filtration rate > NRG Serum or plasma glucose measurement (mass/volume) 128 mg/dL 70-105 Serum or plasma calcium measurement (mass/volume) 8.7 mg/dL 8.5-10.1 Serum or plasma phosphate measurement (mass/volume) - 06/05/16 04:15 Serum or plasma phosphate measurement (mass/volume) 3.0 mg/dL 2.3-4.7 Magnesium - 06/05/16 04:15 Magnesium 2.1 mg/dL 1.8-2.4 Complete blood count (CBC) with automated white blood cell (WBC) differential - 06/06/16 04:10 Blood leukocytes automated count (number/volume) 10.4 10*3/uL 4.3-11.0 Blood erythrocytes automated count (number/volume) 3.99 10*6/uL 4.35-5.85 Venous blood hemoglobin measurement (mass/volume) 11.7 g/dL 11.5-16.0 Blood hematocrit (volume fraction) 34 % 35-52 Automated erythrocyte mean corpuscular volume 86 [foz_us] 80-99 Automated erythrocyte mean corpuscular hemoglobin (mass per erythrocyte) 29 pg 25-34 Automated erythrocyte mean corpuscular hemoglobin concentration measurement (mass/volume) 34 g/dL 32-36 Automated erythrocyte distribution width ratio 13.4 % 10.0- 14.5 Automated blood platelet count (count/volume) 272 10*3/uL 130-400 Automated blood platelet mean volume measurement 9.6 [foz_us] 7.4-10.4 Automated blood neutrophils/100 leukocytes 82 % 42-75 Automated blood lymphocytes/100 leukocytes 14 % 12-44 Blood monocytes/100 leukocytes 5 % 0-12 Automated blood eosinophils/100 leukocytes 0 % 0-10 Automated blood basophils/100 leukocytes 0 % 0-10 Blood neutrophils automated count (number/volume) 8.5 10*3 1.8-7.8 Blood lymphocytes automated count (number/volume) 1.4 10*3 1.0-4.0 Blood monocytes automated count (number/volume) 0.5 10*3 0.0- 1.0 Automated eosinophil count 0.0 10*3/uL 0.0-0.3 Automated blood basophil count (count/volume) 0.0 10*3/uL 0.0-0.1 Whole blood basic metabolic panel - 06/06/16 04:10 Serum or plasma sodium measurement (moles/volume) 139 mmol/L 135-145 Serum or plasma potassium measurement (moles/volume) 3.7 mmol/L 3.6-5.0 Serum or plasma chloride measurement (moles/volume) 107 mmol/L 98-107 Carbon dioxide 22 mmol/L 21-32 Serum or plasma anion gap determination (moles/volume) 10 mmol/L 5-14 Serum or plasma urea nitrogen measurement (mass/volume) 18 mg/dL 7-18 Serum or plasma creatinine measurement (mass/volume) 0.74 mg/dL 0.60-1.30 Serum or plasma urea nitrogen/creatinine mass ratio 24 NRG Serum or plasma creatinine measurement with calculation of estimated glomerular filtration rate > NRG Serum or plasma glucose measurement (mass/volume) 116 mg/dL 70-105 Serum or plasma calcium measurement (mass/volume) 9.0 mg/dL 8.5-10.1 Serum or plasma phosphate measurement (mass/volume) - 06/06/16 04:10 Serum or plasma phosphate measurement (mass/volume) 4.3 mg/dL 2.3-4.7 Magnesium - 06/06/16 04:10 Magnesium 2.4 mg/dL 1.8-2.4 Complete blood count (CBC) with automated white blood cell (WBC) differential - 06/07/16 12:44 Blood leukocytes automated count (number/volume) 11.7 10*3/uL 4.3-11.0 Blood erythrocytes automated count (number/volume) 5.10 10*6/uL 4.35-5.85 Venous blood hemoglobin measurement (mass/volume) 15.0 g/dL 11.5-16.0 Blood hematocrit (volume fraction) 43 % 35-52 Automated erythrocyte mean corpuscular volume 85 [foz_us] 80-99 Automated erythrocyte mean corpuscular hemoglobin (mass per erythrocyte) 29 pg 25-34 Automated erythrocyte mean corpuscular hemoglobin concentration measurement (mass/volume) 35 g/dL 32-36 Automated erythrocyte distribution width ratio 13.7 % 10.0- 14.5 Automated blood platelet count (count/volume) 405 10*3/uL 130-400 Automated blood platelet mean volume measurement 9.8 [foz_us] 7.4-10.4 Automated blood neutrophils/100 leukocytes 65 % 42-75 Automated blood lymphocytes/100 leukocytes 26 % 12-44 Blood monocytes/100 leukocytes 9 % 0-12 Automated blood eosinophils/100 leukocytes 0 % 0-10 Automated blood basophils/100 leukocytes 0 % 0-10 Blood neutrophils automated count (number/volume) 7.6 10*3 1.8-7.8 Blood lymphocytes automated count (number/volume) 3.0 10*3 1.0-4.0 Blood monocytes automated count (number/volume) 1.0 10*3 0.0- 1.0 Automated eosinophil count 0.1 10*3/uL 0.0-0.3 Automated blood basophil count (count/volume) 0.0 10*3/uL 0.0-0.1 Urine beta human chorionic gonadotropin (hCG) measurement - 09/28/17 11:50 Urine beta human chorionic gonadotropin (hCG) measurement NEGATIVE NEGATIVE Methicillin resistant Staphylococcus aureus (MRSA) screening culture - 09/28/17 11:54 Methicillin resistant Staphylococcus aureus (MRSA) screening culture NEG NRG Encounters ACCT No. Visit Date/Time Discharge Status Pt. Type Provider Facility Loc./Unit Complaint [id number] 10/16/2018 14:55:00 10/16/2018 23:59:59 CLS Preadmit MECCA MORSE MD [facility] RAD ROUTINE SCREENING [id number] 09/28/2017 11:41:00 09/28/2017 18:45:00 DIS Outpatient TRAVIS BUCHANAN MD [facility] SDC GALLSTONES [id number] 09/26/2017 05:39:00 09/26/2017 10:49:00 DIS Outpatient TRAVIS BUCHANAN MD [facility] PREOP GALLSTONES [id number] 09/20/2017 14:04:00 09/20/2017 23:59:59 CLS Outpatient HERSON BLACK DO [facility] RAD ABDONIMAL PAIN R10.13 [id number] 06/07/2016 12:41:00 06/07/2016 17:02:00 DIS Emergency WILLIAM RAZA MD [facility] ER ALLERGIC REACTION [id number] 06/03/2016 04:35:00 06/06/2016 11:30:00 DIS Inpatient ELEUTERIO NUNEZ DO [facility] 4TH ANAPHYLAXIS [id number] 06/02/2016 12:17:00 06/02/2016 23:59:59 CLS Outpatient HERSON BLACK DO [facility] LAB PNEUMONIA,J18.9 [id number] 06/01/2016 23:48:00 06/02/2016 01:14:00 DIS Emergency VANIA HOANG DO [facility] ER ALLERGIC RXN [id number] 03/24/2015 13:56:00 03/24/2015 16:12:00 DIS Emergency ALENA CASTLE SECURITY INFRASTRUCTURE ENGINEER [facility] ER BACK SPASMS [id number] 10/10/2014 11:33:00 10/10/2014 22:25:00 DIS Outpatient MECCA MORSE MD [facility] SDC PELVIC MASS; DYSFUNCTIONAL UTERINE BLEEDING; [id number] 10/07/2014 10:06:00 10/07/2014 23:59:59 CLS Outpatient MECCA MORSE MD [facility] PREOP PELVIC MASS; DYSFUNCTIONAL UTERINE BLEEDING; [id number] 11/19/2013 13:23:00 11/19/2013 23:59:59 CLS Outpatient MECCA MORSE MD [facility] RAD NODULAR MASS [id number] 03/24/2015 13:57:22 ACT Document Registration
[2018-12-25 15:41] LABS: BILIRUBIN,URINE NEGATIVE (NEGATIVE); CLARITY,URINE SLIGHTLY CLOUDY; COLOR,URINE YELLOW; GLUCOSE, URINE (UA) NEGATIVE (NEGATIVE); KETONES,URINE 1+ (NEGATIVE); LEUKOCYTE ESTERASE ,URINE 3+ (NEGATIVE); NITRITE,URINE NEGATIVE (NEGATIVE); PH,URINE 7 (5-9); PROTEIN,URINE 1+ (NEGATIVE); UROBILINOGEN,URINE 1 MG/DL (NORMAL)
[2018-12-25 15:49] LABS: BASOPHILS % (AUTO) 0 % (0-10); EOSINOPHILS # (AUTO) 0.2 10^3/uL (0.0-0.3); EOSINOPHILS % (AUTO) 3 % (0-10); HEMATOCRIT 38 % (35-52); HEMOGLOBIN 13.2 G/DL (11.5-16.0); LYMPHOCYTES # (AUTO) 1.8 X 10^3 (1.0-4.0); LYMPHOCYTES % (AUTO) 29 % (12-44); MEAN CORPUSCULAR HEMOGLOBIN 30 PG (25-34); MEAN CORPUSCULAR HGB CONC 35 G/DL (32-36); MEAN CORPUSCULAR VOLUME 87 FL (80-99); MEAN PLATELET VOLUME 10.3 FL (7.4-10.4); MONOCYTES # (AUTO) 0.6 X 10^3 (0.0-1.0); MONOCYTES % (AUTO) 10 % (0-12); NEUTROPHILS # (AUTO) 3.4 X 10^3 (1.8-7.8); NEUTROPHILS % (AUTO) 57 % (42-75); PLATELET COUNT 237 10^3/uL (130-400); RED CELL DISTRIBUTION WIDTH 12.5 % (10.0-14.5)
[2018-12-25 15:50] LABS: BACTERIA,URINE MODERATE /HPF; SQUAMOUS EPITHELIAL CELL,UR 25-50 /HPF
[2018-12-25] MEDS ORDERED: LACTATED RINGERS 1,000 ML IV ONE (15:51)
[2018-12-25 16:18] LABS: ALANINE AMINOTRANSFERASE 21 U/L (0-55); ALBUMIN 4.1 GM/DL (3.2-4.5); ALKALINE PHOSPHATASE 49 U/L (40-136); AMYLASE 50 U/L (25-125); BILIRUBIN,TOTAL 0.4 MG/DL (0.1-1.0); BUN/CREATININE RATIO 21; CALCIUM 9.2 MG/DL (8.5-10.1); CARBON DIOXIDE 25 MMOL/L (21-32); CHLORIDE 106 MMOL/L (98-107); CREATININE SERUM 0.72 MG/DL (0.60-1.30); GFR ESTIMATED > 60; GLUCOSE 84 MG/DL (70-105); LIPASE 40 U/L (8-78); POTASSIUM 3.9 MMOL/L (3.6-5.0); SODIUM 139 MMOL/L (135-145); TOTAL PROTEIN 6.9 GM/DL (6.4-8.2)
--- NOTE | 2018-12-25 17:06 | ED Abdominal Pain ---
General Chief Complaint: Abdominal/GI Problems Stated Complaint: ABD PAIN Nursing Triage Note: PT STATES SHE WAS SEEN OBGYN TODAY FOR LEFT ABD PAIN PAIN. OBGYN STATES ULTRASOUND SHOWED CYST AND PT STATES SHE HAD A NEGATIVE TEST THERE. PT STATES SHE HAD HER GB OUT IN AUGUST AND EVER SINCE HAD HAS BOWEL ISSUES AND DIARRHEA. PT DENIES BURNING OR PAIN WITH URINATION. PT DENIES N/V/FEVER. PT HISTORY OF PCOS. Sepsis Screen: No Definite Risk Source of Information: Patient History of Present Illness Date Seen by Provider: Dec 25, 2018 Time Seen by Provider: 15:15 Initial Comments PT ARRIVES VIA POV STATES SHE WAS SENT HERE BY DR. MORSE, FROM HIS OFFICE--NO CALL FROM HIM PT STATES SHE WOKE UP AT 0630 WITH LLQ PAIN PAIN IS SHARP/STABBING PAIN AND CONSTANT WORSE WITH STRETCHING OUT OR PUSHING ON IT, BUT IS CONSTANTLY PUSHING ON THE AREA NO URINARY SYMPTOMS HAS HAD DIARRHEA SINCE MONDAY, BUT NONE SINCE YESTERDAY. STATES SHE DID HAVE BLOOD IN STOOL X 1 ON MONDAY PT HAS HAD ONGOING ISSUES WITH DIARRHEA SINCE BEFORE SHE HAD CHOLECYSTECTOMY 08/2017, AND IT CONTINUES POST SURGERY NO FEVER PT STATES SHE HAS HISTORY OF PCOS AND ENDOMETRIOSIS, AND SAW DR. MORSE TODAY FOR THIS PROBLEM, AND SHE STATES SHE HAD AN ULTRASOUND IN THE OFFICE, AND A TEST, BOTH WERE REPORTEDLY NEGATIVE, OTHER THAN SMALL, NORMAL OVARIAN CYSTS, PER PT. LMP 3 1/2 WEEKS AGO, NORMAL. ON OCP'S PCP:DR. 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 MORSE Allergies and Home Medications Allergies Coded Allergies: azithromycin (Verified Allergy, Severe, ANAPHYLAXIS, 06/03/16) Home Medications Cefprozil 250 Mg Tablet, 250 MG PO BID, (Reported) Ciprofloxacin HCl 500 Mg Tablet, 500 MG PO BID Prescribed by: VANIA HOANG on 12/25/18 1728 Hydrocodone Bit/Acetaminophen 1 Ea Tablet, 1-2 EACH PO Q4H Prescribed by: TRAVIS BUCHANAN on 09/28/17 1600 Ketorolac Tromethamine 10 Mg Tablet, 10 MG PO Q6H Prescribed by: VANIA HOANG on 12/25/18 1728 Lactobacillus Acidophilus 1 Each Capsule, 2 EACH PO QID Prescribed by: VANIA HOANG on 12/25/18 1730 Metformin HCl 500 Mg Tab.er.24h, 500 MG PO DAILY, (Reported) Metronidazole 500 Mg Tablet, 500 MG PO QID Prescribed by: VANIA HOANG on 12/25/18 1728 Naproxen Sodium 220 Mg Tablet, 220 MG PO BID PRN for PAIN-MILD, (Reported) Norgestimate-Ethinyl Estradiol 1 Each Tablet, 1 TAB PO DAILY, (Reported) Sertraline HCl 100 Mg Tablet, 100 MG PO DAILY, (Reported) Spironolactone 50 Mg Tablet, 50 MG PO DAILY, (Reported) Patient Home Medication List Home Medication List Reviewed: Yes Review of Systems Review of Systems Constitutional: no symptoms reported Respiratory: No Symptoms Reported Cardiovascular: No Symptoms Reported Gastrointestinal: See HPI, Abdominal Pain, Diarrhea, Nausea; Denies Poor Appetite, Denies Poor Fluid Intake, Denies Vomiting Genitourinary: No Symptoms Reported Musculoskeletal: no symptoms reported; No back pain Skin: no symptoms reported Psychiatric/Neurological: No Symptoms Reported Endocrine: No Symptoms Reported Hematologic/Lymphatic: No Symptoms Reported Past Xhyjfeu-Xbzqvm-Rqhelp Hx Patient Social History Alcohol Use: Occasionally Uses Recreational Drug Use: No Smoking Status: Never a Smoker Recent Foreign Travel: No Contact w/Someone Who Travel: No Recent Infectious Disease Expo: No Recent Hopitalizations: No Immunizations Up To Date Tetanus Booster (TDap): Unknown PED Vaccines UTD: No Date of Influenza Vaccine: Mar 15, 2017 Seasonal Allergies Seasonal Allergies: No Past Medical History Surgeries: Yes (DX LAPAROSCOPY FOR ENDOMETRIOSIS; ROSMERY 08/2017) Gallbladder Respiratory: No Pneumonia Currently Using CPAP: No Currently Using BIPAP: No Cardiac: Yes Chronic Edema/Swelling Neurological: Yes Headaches /Migraines : No Reproductive Disorders: Yes Female Reproductive Disorders: Menstrual Problems, Endometriosis, Ovarian Cyst, Polycystic Ovarian Dis Sexually Transmitted Disease: No HIV/AIDS: No Genitourinary: Yes (NOTED ON CT SCAN--NEVER PASSED A KIDNEY STONE) Kidney Stones Gastrointestinal: Yes Gastroesophageal Reflux, Gall Bladder Disease Musculoskeletal: Yes (BULGING DISC IN BACK) Degenerate Disk Disease, Chronic Back Pain Endocrine: Yes ( PCOS) HEENT: No Loss of Vision: Denies Hearing Impairment: Denies Cancer: No Psychosocial: Yes Anxiety, Depression Integumentary: No Blood Disorders: No Adverse Reaction/Blood Tranf: No Family Medical History TIAs 19 FATHER, Onset:Unknown No Pertinent Family Hx Physical Exam Vital Signs Vital Signs - First Documented 12/25/18 15:12 Temp 98.9 Pulse 94 Resp 18 B/P (MAP) 123/79 (94) Pulse Ox 98 O2 Delivery Room Air Capillary Refill : Less Than 3 Seconds Height/Weight/BMI Height: 5'1.00" Weight: 138lbs. 0.0oz. 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 nml as tested, no motor/sensory deficits, alert, normal mood/affect, oriented x 3 Skin: normal color, warm/dry; No rash Progress/Results/Core Measures Results/Orders Lab Results Laboratory Tests Test 12/25/18 15:36 12/25/18 15:43 Range/Units Urine Color YELLOW Urine Clarity SLIGHTLY CLOUDY Urine pH 7 5-9 Urine Specific [place] 1.010 L 1.016-1.022 Urine Protein 1+ H NEGATIVE Urine Glucose (UA) NEGATIVE NEGATIVE Urine Ketones 1+ H NEGATIVE Urine Nitrite NEGATIVE NEGATIVE Urine Bilirubin NEGATIVE NEGATIVE Urine Urobilinogen 1 NORMAL MG/DL Urine Leukocyte Esterase 3+ H NEGATIVE Urine RBC (Auto) 1+ H NEGATIVE Urine RBC 2-5 H /HPF Urine WBC 2-5 /HPF Urine Squamous Epithelial Cells 25-50 H /HPF Urine Crystals NONE /LPF Urine Bacteria MODERATE H /HPF Urine Casts NONE /LPF Urine Mucus MODERATE H /LPF Urine Culture Indicated YES White Blood Count 6.0 4.3-11.0 10^3/uL Red Blood Count 4.38 4.35-5.85 10^6/uL Hemoglobin 13.2 11.5-16.0 G/DL Hematocrit 38 35-52 % Mean Corpuscular Volume 87 80-99 FL Mean Corpuscular Hemoglobin 30 25-34 PG Mean Corpuscular Hemoglobin Concent 35 32-36 G/DL Red Cell Distribution Width 12.5 10.0-14.5 % Platelet Count 237 130-400 10^3/uL Mean Platelet Volume 10.3 7.4-10.4 FL Neutrophils (%) (Auto) 57 42-75 % Lymphocytes (%) (Auto) 29 12-44 % Monocytes (%) (Auto) 10 0-12 % Eosinophils (%) (Auto) 3 0-10 % Basophils (%) (Auto) 0 0-10 % Neutrophils # (Auto) 3.4 1.8-7.8 X 10^3 Lymphocytes # (Auto) 1.8 1.0-4.0 X 10^3 Monocytes # (Auto) 0.6 0.0-1.0 X 10^3 Eosinophils # (Auto) 0.2 0.0-0.3 10^3/uL Basophils # (Auto) 0.0 0.0-0.1 10^3/uL Sodium Level 139 135-145 MMOL/L Potassium Level 3.9 3.6-5.0 MMOL/L Chloride Level 106 98-107 MMOL/L Carbon Dioxide Level 25 21-32 MMOL/L Anion Gap 8 5-14 MMOL/L Blood Urea Nitrogen 15 7-18 MG/DL Creatinine 0.72 0.60-1.30 MG/DL Estimat Glomerular Filtration Rate > 60 BUN/Creatinine Ratio 21 Glucose Level 84 70-105 MG/DL Calcium Level 9.2 8.5-10.1 MG/DL Corrected Calcium 9.1 8.5-10.1 MG/DL Total Bilirubin 0.4 0.1-1.0 MG/DL Aspartate Amino Transf (AST/SGOT) 15 5-34 U/L Alanine Aminotransferase (ALT/SGPT) 21 0-55 U/L Alkaline Phosphatase 49 40-136 U/L Total Protein 6.9 6.4-8.2 GM/DL Albumin 4.1 3.2-4.5 GM/DL Amylase Level 50 25-125 U/L Lipase 40 8-78 U/L My Orders Orders - VANIA HOANG DO Ed Iv/Invasive Line Start (12/25/18 15:19) Urine Bedside (12/25/18 15:19) Amylase (12/25/18 15:19) Cbc With Automated Diff (12/25/18 15:19) Comprehensive Metabolic Panel (12/25/18 15:19) Lipase (12/25/18 15:19) Ua Culture If Indicated (12/25/18 15:19) Urine Culture (12/25/18 15:36) Ct Abd/Pelvis Wo(Kidney Stone) (12/25/18 15:51) Abdomen, Flat & Upright/Decub (12/25/18 15:51) Ed Iv/Invasive Line Start (12/25/18 15:51) Lactated Ringers (Lr 1000 Ml Iv Solution (12/25/18 15:51) Ketorolac Injection (Toradol Injection) (12/25/18 17:30) Ceftriaxone For Iv Use (Rocephin For I (12/25/18 17:30) Medications Given in ED Current Medications Medications Dose Ordered Sig/Nora Route Start Time Stop Time Status Last Admin Dose Admin Ceftriaxone Sodium 1000 mg/ Sterile Water 10 ml @ 200 mls/hr ONCE ONCE IV 12/25/18 17:30 12/25/18 17:32 DC 12/25/18 17:44 200 MLS/HR Ketorolac Tromethamine 30 mg ONCE ONCE IVP 12/25/18 17:30 12/25/18 17:31 DC 12/25/18 17:44 30 MG Lactated Ringer's 1,000 ml @ 0 mls/hr Q0M ONCE IV 12/25/18 15:51 12/25/18 16:04 DC 12/25/18 16:09 1,000 MLS/HR Vital Signs/I&O 12/25/18 12/25/18 15:12 17:55 Temp 98.9 98.2 Pulse 94 78 Resp 18 20 B/P (MAP) 123/79 (94) 128/64 (85) Pulse Ox 98 100 O2 Delivery Room Air Room Air Blood Pressure Mean: 94 Progress Progress Note : Progress Note UNEVENTFUL ER STAY Diagnostic Imaging Comments ABDOMEN XRAYS--NO ACUTE PROCESS, PER RADIOLOGIST REPORTS CT ABDOMEN / PELVIS--PUNCTATE RIGHT INTRARENAL CALCULUS, NO URETERAL CALCULI OR OBSTRUCTION; NO EVIDENCE OF APPENDICITIS; PERICOLONIC INFLAMMATORY CHANGES OF DESCENDING COLON, MOSTLY LIKELY EPIPLOIC APPENDAGITIS, WITH DIVERTICULITIS LESS LIKELY. PER RADIOLOGIST REPORTS AT 1721 Reviewed: Reviewed by Me Departure Impression Primary Impression: Urinary tract infection Additional Impression: Colitis Disposition: 01 HOME, SELF-CARE Condition: Stable Departure-Patient Inst. Referrals: MECCA MORSE MD, WILLIAM J DO (PCP/Family) Primary Care Physician Patient Instructions: Colitis (DC), Urinary Tract Infection, Adult (DC) Add. Discharge Instructions: CLEAR LIQUIDS--WATER, BROTH, JELLO, GATORADE NO FOOD UNTIL YOUR PAIN IS BETTER, THEN YOU MAY ADD BRATS DIET TO CLEAR LIQUIDS--BANANAS, RICE, APPLESAUCE, TOAST, SALTINES FOLLOW UP WITH DR. BLACK OR DR. MORSE THIS WEEK FOR FURTHER CARE All discharge instructions reviewed with patient and/or family. Voiced unders tanding. Scripts Lactobacillus Acidophilus (Acidophilus) 1 Each Capsule 2 EACH PO QID, #80 CAP Prov: VANIA HOANG DO 12/25/18 Ketorolac Tromethamine (Ketorolac Tromethamine) 10 Mg Tablet 10 MG PO Q6H for Pain, #15 TAB Prov: VANIA HOANG DO 12/25/18 Metronidazole (Flagyl) 500 Mg Tablet 500 MG PO QID for FOR INFECTION, #40 TAB Prov: VANIA HOANG DO 12/25/18 Ciprofloxacin HCl (Cipro) 500 Mg Tablet 500 MG PO BID, #20 TAB Prov: VANIA HOANG DO 12/25/18 VANIA HOANG DO Dec 25, 2018 17:06
--- NOTE | 2018-12-25 17:18 | Diagnostic Imaging Report ---
PROCEDURE: CT urinary tract, rule out kidney stone. TECHNIQUE: Multiple contiguous axial images were obtained through the abdomen and pelvis without the use of intravenous contrast. Auto Exposure Controls were utilized during the CT exam to meet ALARA standards for radiation dose reduction. INDICATION: Severe left lower quadrant pain with diarrhea. COMPARISON: None. FINDINGS: There is dependent atelectasis in the lung bases. The heart is normal in size. There is no pericardial effusion. The liver demonstrates a hypoattenuating lesion in the left liver measuring 7 mm, which is too small to characterize. The spleen appears normal. The pancreas is normal. Cholecystectomy clips are noted. The adrenal glands are normal. There is a punctate calculus in the right kidney which is nonobstructing. No obstructing calculi are seen bilaterally. There is no hydronephrosis. The bowel loops are nondistended without obstruction seen. The appendix is upper normal in size, but there are no findings of appendicitis. There is a focal area of fat stranding anterior to the distal descending colon. No definite associated diverticulum is seen. There is no free air or fluid collection. There is mild wall thickening of the adjacent colon. No acute osseous abnormalities seen. IMPRESSION: 1. Pericolonic inflammatory changes at the descending colon. This is thought to most likely represent an epiploic appendagitis. Mild/early diverticulitis is in the differential but thought less likely. 2. Right nephrolithiasis with no obstruction or hydronephrosis. Dictated by: Dictated on workstation # [id number]
[2018-12-25] MEDS ORDERED: CIPR-225 PO (17:28)
[2018-12-25] MEDS ORDERED: METR500T PO (17:28)
[2018-12-25] MEDS ORDERED: KETO10TA PO (17:28)
[2018-12-25] MEDS ORDERED: cefTRIAXone FOR IV USE 1,000 MG in WATER (STERILE) FOR INJECTION 10 ML IV ONE (17:30)
[2018-12-25] MEDS ORDERED: KETOROLAC 30 MG/ML VIAL IVP ONE (17:30)
[2018-12-25] MEDS ORDERED: LACT1CAP8 PO (17:30)
--- NOTE | 2018-12-25 17:52 | Diagnostic Imaging Report ---
PATIENT HISTORY: Left abdominal pain. Diarrhea. TECHNIQUE: Frontal view of the abdomen. COMPARISON: CT from 12/25/2018. FINDINGS: No dilated loops of small bowel or large collection of free air is seen. A small amount of stool is seen in the colon. Osseous structures are unremarkable. Cholecystectomy clips are noted. IMPRESSION: No bowel obstruction or large collection of free air seen. Dictated by: Dictated on workstation # [id number]
[2018-12-25 17:55] VITALS: BP 128/64
== END 2018-12-25 17:55 | disposition home or self-care (01) ==
LOC: EDUNIT# 15:05 → ER 15:06
DX: N39.0 Urinary tract infection, site not specified (principal); K52.9 Noninfective gastroenteritis and colitis, unspecified; G43.909 Migraine, unspecified, not intractable, without status migrainosus; K21.9 Gastro-esophageal reflux disease without esophagitis; F41.9 Anxiety disorder, unspecified; F32.9 Major depressive disorder, single episode, unspecified; Z87.442 Personal history of urinary calculi; Z87.01 Personal history of pneumonia (recurrent); Z79.84 Long term (current) use of oral hypoglycemic drugs; Z88.1 Allergy status to other antibiotic agents; Z90.49 Acquired absence of other specified parts of digestive tract; Z32.02 Encounter for pregnancy test, result negative
CPT/HCPCS: 36415; 74019; 74176; 80053; 81000; 82150; 83690; 84703; 85025; 87088; 96374; 96375

== ENCOUNTER → 2019-01-08 | Outpatient (CLI) | payer BC, OTHER ==
[~2019-01-08] MED LIST changes: +CIPR-225 PO; +KETO10TA PO; +LACT1CAP8 PO; +METR500T PO
--- NOTE | 2019-01-08 15:34 | Diagnostic Imaging Report ---
INDICATION: Routine screening. COMPARISON: 11/19/2013. TECHNIQUE: 2D and 3D bilateral screening mammography was performed with CAD. FINDINGS: Scattered fibroglandular densities are identified bilaterally. No mass or malignant appearing microcalcifications are seen. The axillae are unremarkable. IMPRESSION: No mammographic features suspicious for malignancy are identified. ACR BI-RADS Category 1: Negative. Result letter will be mailed to the patient. Note: At least 10% of breast cancer is not imaged by mammography. Dictated by: Dictated on workstation # [id number]
== END ==
LOC: RAD 13:39
PROVIDERS: ATTEND Obstetrics & Gynecology
DX: Z12.31 Encounter for screening mammogram for malignant neoplasm of breast (principal)
CPT/HCPCS: 77067

== ENCOUNTER → 2020-01-10 | Outpatient (CLI) | payer OTHER ==
[~2020-01-10] MED LIST changes: +METF-865 PO; -MONT10TA24 PO; +MONT10TA26 PO; +MULT-567 PO; -MULT1TAB69 PO
--- NOTE | 2020-01-13 08:55 | Diagnostic Imaging Report ---
INDICATION: Routine screening. Comparison is made with prior mammogram from 01/08/2019 and 11/19/2013. 2-D and 3-D bilateral screening mammography was performed with CAD. Scattered fibroglandular densities are identified bilaterally. No spiculated mass or malignant appearing microcalcifications are seen. Axillae are unremarkable. IMPRESSION: BI-RADS Category 1 No mammographic features suspicious for malignancy are identified. ACR BI-RADS Category 1: Negative. Result letter will be mailed to the patient. Note: At least 10% of breast cancer is not imaged by mammography. Dictated by: Dictated on workstation # [id number]
== END ==
LOC: RAD 15:21
PROVIDERS: ATTEND Obstetrics & Gynecology
DX: Z12.31 Encounter for screening mammogram for malignant neoplasm of breast (principal)
CPT/HCPCS: 77063; 77067